=== PATIENT | male | born 1950 | race Hispanic/Latino ===

== ENCOUNTER 2020-08-04 11:49 | Emergency (ER) | payer MEDICARE, MEDICAID ==
[~2020-08-04] VITALS: Ht 172.7 cm; Wt 87.5 kg
--- OUTSIDE RECORDS SUMMARY | 2020-08-04 11:56 | XMS ---
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 Yomi VISIT COUNT (12 MO.) [address] TOTAL 3 NOTE: Visits indicate total known visits. ED/UCC VISIT TRACKING (12 MO.) 08/04/2020 11:50 [facility] [place] TYPE: Emergency COMPLAINT: - L SIDE BODY PAIN/NUMBNESS 07/31/2020 15:45 [facility] [place] TYPE: Emergency DIAGNOSES: - CHEST PAIN - Chest pain, unspecified 08/10/2019 15:31 [employer] [place] TYPE: Emergency DIAGNOSES: - SHOULDER PAIN - Other muscle spasm INPATIENT VISIT TRACKING (12 MO.) No inpatient visits to display in this time frame [id number]
[2020-08-04] MEDS ORDERED: LANTUS100 UNITS/ SUB-Q (12:05)
[2020-08-04] MEDS ORDERED: HUMALOG100 UNIT/1 SUB-Q (12:05)
[2020-08-04] MEDS ORDERED: HYDROCHLOROTH12.5 M1 PO (12:05)
[2020-08-04] MEDS ORDERED: IBUPROFEN100 MG PO (12:05)
[2020-08-04] MEDS ORDERED: TRAZODONE HCL50 MG PO (12:05)
[2020-08-04] MEDS ORDERED: LIPITOR20 MG (12:06)
[2020-08-04] MEDS ORDERED: HYDROCODON-ACE1 EA10 PO (16:06)
[2020-08-04] MEDS ORDERED: PREDNISONE20 MG PO (16:06)
--- NOTE | 2020-08-05 14:03 | EKG ---
[facility] [address] [facility] [place], [place] [address] Signed Normal sinus rhythm Left axis deviation Inferior infarct , age undetermined Abnormal ECG No previous ECGs available Confirmed by HARRIS GLASER MD ([id number]) on 08/05/2020 2:02:54 PM Electronically Signed By: HARRIS GLASER MD 08/05/20 1403 PATIENT NAME: [id number] Electrocardiogram DATE OF : 46 PHYSICIAN: HARRIS LGASER MD REPORT #: [id number] REPORT IS CONFIDENTIAL AND NOT TO BE RELEASED WITHOUT AUTHORIZATION
== END 2020-08-04 16:24 | disposition home or self-care (01) ==
LOC: ED 11:49
DX: R20.2 Paresthesia of skin (principal); M62.830 Muscle spasm of back; E11.9 Type 2 diabetes mellitus without complications; I10 Essential (primary) hypertension; Z79.899 Other long term (current) drug therapy; Z79.4 Long term (current) use of insulin
CPT/HCPCS: 70450; 70496; 70498; 71045; 80053; 84484; 85025; 85610; 85730; 93005; 93010; 96375; 99284-25; J1100; J1885; Q9967

== ENCOUNTER 2021-01-11 08:08 | Emergency (ER) | payer MEDICARE, MEDICAID ==
[~2021-01-11] VITALS: Ht 172.7 cm; Wt 87.5 kg
[~2021-01-11 08:08] MED LIST: HUMALOG100 UNIT/1 SUB-Q; HYDROCHLOROTH12.5 M1 PO; HYDROCODON-ACE1 EA10 PO; IBUPROFEN100 MG PO; LANTUS100 UNITS/ SUB-Q; LIPITOR20 MG; PREDNISONE20 MG PO; TRAZODONE HCL50 MG PO
[2021-01-11] MEDS ORDERED: HYDROCODON-ACE1 EA10 PO (08:46)
[2021-01-11] MEDS ORDERED: CYCLOBENZAPRINE10 MG PO (08:46)
[2021-01-12] MEDS ORDERED: PREDNISONE20 MG PO (10:27)
== END 2021-01-11 09:09 | disposition home or self-care (01) ==
LOC: ED 08:08
DX: M54.12 Radiculopathy, cervical region (principal); E11.9 Type 2 diabetes mellitus without complications; I10 Essential (primary) hypertension; Z87.442 Personal history of urinary calculi; Z79.4 Long term (current) use of insulin; Z79.899 Other long term (current) drug therapy
CPT/HCPCS: 99283

== ENCOUNTER 2021-01-12 08:54 | Emergency (ER) | payer MEDICARE, MEDICAID ==
[~2021-01-12] VITALS: Ht 172.7 cm; Wt 87.5 kg
[~2021-01-12 08:54] MED LIST changes: +CYCLOBENZAPRINE10 MG PO
--- OUTSIDE RECORDS SUMMARY | 2021-01-12 09:02 | XMS ---
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 Yomi VISIT COUNT (12 MO.) [address] [place] [address] TOTAL 4 NOTE: Visits indicate total known visits. 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
[2021-01-12] MEDS ORDERED: PREDNISONE20 MG PO (10:27)
== END 2021-01-12 11:34 | disposition home or self-care (01) ==
LOC: ED 08:54
DX: M54.12 Radiculopathy, cervical region (principal); E11.9 Type 2 diabetes mellitus without complications; I10 Essential (primary) hypertension; Z87.442 Personal history of urinary calculi; Z79.52 Long term (current) use of systemic steroids; Z79.899 Other long term (current) drug therapy; Z79.4 Long term (current) use of insulin
CPT/HCPCS: 80053; 96374; 96375; 99283-25; J1100; J1885

== ENCOUNTER 2021-06-27 06:10 | Emergency (ER) | payer MEDICARE, MEDICAID ==
[~2021-06-27] VITALS: Ht 172.7 cm; Wt 87.5 kg
--- OUTSIDE RECORDS SUMMARY | 2021-06-27 06:14 | XMS ---
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 EShellie VISIT COUNT (12 MO.) [address] [address] [facility] TOTAL 5 NOTE: Visits indicate total known visits. ED/UCC VISIT TRACKING (12 MO.) 06/27/2021 06:12 [facility] TYPE: Emergency COMPLAINT: - BACK PAIN 01/12/2021 08: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 - Personal history of urinary calculi - Other roasterman (current) drug therapy - Cervicalgia - Type 2 diabetes mellitus without complications - Essential (primary) hypertension - Radiculopathy, cervical region 08/04/2020 11:50 [facility] TYPE: Emergency COMPLAINT: - L SIDE BODY PAIN/NUMBNESS DIAGNOSES: - Muscle spasm of back - Type 2 diabetes mellitus without complications - Anesthesia of skin - Other residential (current) drug therapy - senior living (current) use of insulin - Essential (primary) hypertension - Paresthesia of skin 07/31/2020 15:45 [facility] [place] TYPE: Emergency DIAGNOSES: - CHEST PAIN - Chest pain, unspecified INPATIENT VISIT TRACKING (12 MO.) No inpatient visits to display in this time frame [id number]
[2021-06-27] MEDS ORDERED: HYDROCODON-ACE1 EA10 PO (06:58)
== END 2021-06-27 07:25 | disposition home or self-care (01) ==
LOC: ED 06:10
DX: S29.012A Strain of muscle and tendon of back wall of thorax, initial encounter (principal); E11.9 Type 2 diabetes mellitus without complications; I10 Essential (primary) hypertension; Z79.4 Long term (current) use of insulin; Z79.899 Other long term (current) drug therapy; X58.XXXA Exposure to other specified factors, initial encounter
CPT/HCPCS: 72070; 96372; 99283-25; J2270